=== PATIENT | male | born 1965 | race Caucasian/White ===

== ENCOUNTER 2023-01-28 10:20 | Outpatient (CLI) | payer OTHER, MEDICARE, SELFPAY ==
--- NOTE | 2023-01-28 | ECG_ITS ---
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 Interpretive Statements NAME OF STUDY: TREADMILL STRESS TEST INDICATION: htn, PROCEDURE: At the baseline, the patient's blood pressure was 160/77 with a heart rate of 81. The baseline electrocardiogram showed normal sinus rhythm with normal ST-Ts.. The patient exercised for 8 minutes on a standard Savage protocol. Patient attained a maximum heart rate of 159 beats per minute(97% of the maximum predicted heart rate) with a blood pressure at the peak exercise of 217/78 mm Hg. The EKG at the peak exercise revealed. Patient did not have any chest pain or any significant cardiac arrhythmias with the exercise During the recovery phase, there were no new changes. Blood pressure at the end of the recovery phase was 175/69 mm Hg with a heart rate of 88 per minute. CONCLUSION: 1. No significant EKG changes with treadmill exercise 2. No exercise-induced chest pain or cardiac arrhythmia 3. Fair exercise tolerance, attained a maximum of 10.2 METs 4. Hypertensive response to exercise Electronically Signed On 01-28-2023 15:42:25 CDT by Isabelle Lassiter M.D. [id number]
[2023-01-28 10:31] VITALS: BMI 32.5
[2023-01-28 11:12] VITALS: BP 175/69; PULSE 88
== END 2023-01-28 10:21 | disposition home or self-care (01) ==
LOC: CDL 10:26
PROVIDERS: Visit Provider Family Medicine
DX: R07.9 Chest pain, unspecified (principal); I10 Essential (primary) hypertension
CPT/HCPCS: 93017

== ENCOUNTER 2023-01-28 11:24 | Outpatient (CLI) | payer OTHER, MEDICARE, SELFPAY ==
[2023-01-28 12:25] LABS: Albumin Level 4.3 g/dL (3.5-5.2); Alkaline Phosphatase 121 U/L (40-130); Anion Gap 16.6 (5-19); Aspartate Amino Transferase 16 U/L (0-40); Blood Urea Nitrogen 15 mg/dL (6-20); Calcium 9.2 mg/dL (8.5-10.5); Carbon Dioxide 23 mmol/L (22-29); Chloride 104 mmol/L (98-107); Chol HDL Ratio 4.22 mg/dL (1.0-5.00); Cholesterol 152 mg/dL (0-200); Globulin 2.7 g/dL (1.3-4.6); Glomerular Filtration Rate 99.6 mL/min (90-130); Glucose 155 mg/dL (65-115); HDL Cholesterol 36 mg/dL (60-100); LDL Cholesterol Calculated 94 mg/dL (50-129); LDL HDL Ratio 2.61 RATIO (0.00-3.22); Osmolality Calculated 292 mOsm/kg (285-295); Potassium 4.6 mmol/L (3.5-5.1); Sodium 139 mmol/L (136-145); Total Bilirubin 0.6 mg/dL (0.15-1.2); Triglycerides 110 mg/dL (0-150)
[2023-01-28 12:37] LABS: Creatinine Urine, Random 140 mg/dL (39-259); Microalbumin Random Urine 12 ug/dL (0-20)
[2023-01-28 12:38] LABS: Alanine Aminotransferase 24 U/L (0-41); Estmated Average Glucose 163; Hemoglobin A1C 7.3 % (4.0-6.0)
[2023-01-28 12:39] LABS: Microalbum Creatinine Ratio Ur 86 mg/dL (0-20)
== END 2023-01-28 11:25 | disposition home or self-care (01) ==
PROVIDERS: PCP Family Medicine; Visit Provider Family Medicine
DX: E11.9 Type 2 diabetes mellitus without complications (principal)
CPT/HCPCS: 36415; 80053; 80061; 82044; 83036

== ENCOUNTER 2023-03-25 12:12 | Emergency (ER) | payer OTHER, MEDICARE, SELFPAY ==
[2023-03-25 12:13] VITALS: BP 170/94; PULSE 72; RESP 17; TEMP 36.8; O2SAT 96; BMI 32.5
--- NOTE | 2023-03-25 12:36 | XR_ITS ---
WS: [id number] Portable AP upright chest, 03/25/2023 Clinical Data: htn, headache Comparison: None. Findings: No nodules, masses or effusions are seen. The heart is normal. The pulmonary vascularity is not increased. No pneumonia or pneumothorax is seen. XR/XR chest 1V portable [id number] Impression: Negative chest.
[2023-03-25 12:55] LABS: Basophils % 0.5 %; Eosinophils # 0.1 10^3/uL (0.0-0.8); Eosinophils % 1.8 %; Hematocrit 40.1 % (42.0-52.0); Hemoglobin 13.5 g/dL (11.7-16.6); Lymphocytes # 1.9 10^3/uL (0.8-4.8); Lymphocytes % 23.2 %; Mean Corpuscular HGB Conc 33.7 g/dL (30.0-36.0); Mean Corpuscular Hemoglobin 29.8 pg (28.0-34.0); Mean Corpuscular Volume 88.5 fl (80-94); Mean Platelet Volume 9.3 fL (7.4-10.4); Monocytes # 0.6 10^3/uL (0.2-0.9); Neutrophils # 5.32 10^3/uL (1.8-7.7); Neutrophils % 66.6 %; Nucleated Red Blood Cells % 0 %; Platelet Count 255 10^3/cmm (130-400); Red Blood Count 4.53 10^6/uL (4.1-5.3); Red Cell Distribution Width 12.3 % (12.1-15.1)
--- NOTE | 2023-03-25 13:15 | CT_ITS ---
WS: [id number] CT HEAD TECHNIQUE: Noncontrast CT of the head obtained from the skullbase to the vertex. CLINICAL INFORMATION: htn, dizziness, headache COMPARISON: None. DLP: 1146.[address] scans at [facility] use at least one of these dose optimization techniques: automated e xposure control; mA and/or kV adjustment per patient size (includes targeted exams where dose is matc hed to clinical indication); or iterative reconstruction. FINDINGS: No evidence of intracranial hemorrhage or mass effect. Ventricular system and basal cisterns are brown nt. 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 Mild small vessel changes with mild parenchymal volume loss. No extra-axial fluid collections. No derek dence of mass or mass effect. Paranasal sinuses and mastoid air cells are well aerated. .Normal visualized soft tissues. CT/CT head wo con* [id number] IMPRESSION: 1. No evidence of intracranial hemorrhage or mass effect. 2. 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 3. No acute intracranial findings.
--- NOTE | 2023-03-25 13:15 | W.ED.DIZZY ---
HPI - Dizziness General: Chief Complaint: Dizziness Stated Complaint: High BP, dizzy, head pain Time Seen by Provider: 03/25/23 13:04 History of Present Illness: HPI Narrative: 57-year-old male patient comes in today with elevated blood pressure this morning along with headache and dizziness. On exam patient appears nontoxic. Patient states that he is starting to feel better with his headache resolving and not as dizzy. Patient reports that he has recently been placed on some carvedilol 3.125 mg twice a day. Patient previously was on losartan 100 mg daily. Patient states that he has started smoking again which he believes is contributing to his poor control of blood pressure. Patient appears nontoxic. Patient reports no chest pain. Patient does have a headache with some mild dizziness. Patient denies any other chronic medical problems. Patient reports recent stress test approximately 1 month ago that was normal. Associated symptoms: Reports headache(s); Denies chest pain, nausea or vomiting Associated neuro symptoms: Deny numbness in extremities Review of Systems Const: Denies: fever(s) Card: Denies: chest pain Resp: Denies: dyspnea GI: Denies: nausea or vomiting : Denies: difficulty urinating Skin/Breast: Denies: rash Neuro: Reports: headache(s) and dizziness; Denies: numbness in extremities Psych: Denies: anxiety Physical Exam Const: COMMON NORMALS: alert HENMT: COMMON NORMALS: normocephalic HEAD & SCALP: normocephalic THROAT: posterior oropharynx normal Neck/C-Spine: COMMON NORMALS: full ROM Chest: COMMONS NORMALS: normal inspection of the chest Resp: COMMON NORMALS: normal respiratory effort Cardio: COMMON NORMALS: regular rate, regular rhythm, S1 normal heart sound present and S2 normal heart sound present RATE: regular rate RHYTHM: regular rhythm HEART SOUNDS: S1 normal heart sound present and S2 normal heart sound present GI: COMMON NORMALS: Soft to palpation and non-tender PALPATION: Yes Soft to palpation Extremity: COMMON NORMALS: no pedal edema Neuro: SUSAN COMA SCALE: document GCS findings Susan coma scale eye opening: Spontaneous Susan coma scale verbal response: Orientated Susan coma scale motor response: Obey commands Susan coma scale total score: 15 SENSORIUM/ORIENTATION: Yes alert GAIT: Yes Normal gait present Skin: COMMON NORMALS: turgor normal GENERAL SKIN EXAM: turgor normal Course Vital Signs: Vital signs: Vital Signs Temperature 98.2 F 03/25/23 12:13 Pulse Rate 65 03/25/23 13:39 Respiratory Rate 16 03/25/23 13:39 Blood Pressure 143/88 03/25/23 13:39 Pulse Oximetry 97 03/25/23 13:39 Oxygen Delivery Me thod Room Air 03/25/23 13:39 MDM - Dizziness Medical Decision Making 57-year-old male patient comes in today with complaints of dizziness and headache. On exam patient moves all extremities well. Patient appears nontoxic. No weakness is noted in the extremities. No focal neural deficits are noted. Vital signs are normal except for some elevation of blood pressure at 170/94. Differential diagnosis includes but not limited to hypertensive urgency, intracranial bleeding, stroke syndrome, anxiety. Laboratory values were unremarkable. EKG was sinus rhythm with no significant abnormalities. Cardiac enzymes was normal. Patient's blood pressure came down to 140 systolic and he had resolution of symptoms. Believe the patient probably had some overlapping time from when he took his blood pressure medication and his symptoms. Recommend increasing carvedilol to 6.25 mg twice a day for better blood pressure control. Patient was recommended to follow-up with primary care for further instruction and evaluation. Patient agreed to plan and was discharged home. Patient was stable and free of discomfort on discharge. Lab Data 03/25/23 12:48 03/25/23 12:48 Radiology Impressions Chest X-Ray 03/25/23 12:36 Impression: Negative chest. Head CT 03/25/23 13:15 IMPRESSION: 1. No evidence of intracranial hemorrhage or mass effect. 2. 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 3. No acute intracranial findings. Laboratory Results WBC 8.0 10^3/uL (4.0-10.0) 03/25/23 12:48 RBC 4.53 10^6/uL (4.1-5.3) 03/25/23 12:48 Hgb 13.5 g/dL (11.7-16.6) 03/25/23 12:48 Hct 40.1 % (42.0-52.0) L 03/25/23 12:48 MCV 88.5 fl (80-94) 03/25/23 12:48 MCH 29.8 pg (28.0-34.0) 03/25/23 12:48 MCHC 33.7 g/dL (30.0-36.0) 03/25/23 12:48 RDW 12.3 % (12.1-15.1) 03/25/23 12:48 Plt Count 255 10^3/cmm (130-400) 03/25/23 12:48 MPV 9.3 fL (7.4-10.4) 03/25/23 12:48 Neut % (Auto) 66.6 % 03/25/23 12:48 Lymph % (Auto) 23.2 % 03/25/23 12:48 [place] % (Auto) 7.0 % 03/25/23 12:48 Eos % (Auto) 1.8 % 03/25/23 12:48 Baso % (Auto) 0.5 % 03/25/23 12:48 Neut # (Auto) 5.32 10^3/uL (1.8-7.7) 03/25/23 12:48 Lymph # (Auto) 1.9 10^3/uL (0.8-4.8) 03/25/23 12:48 [place] # (Auto) 0.6 10^3/uL (0.2-0.9) 03/25/23 12:48 Eos # (Auto) 0.1 10^3/uL (0.0-0.8) 03/25/23 12:48 Baso # (Auto) 0.0 10^3/uL (0.0-0.1) 03/25/23 12:48 Nucleated RBC % (auto) 0 % 03/25/23 12:48 Nucleated RBCs # 0.0 /100WBC 03/25/23 12:48 Sodium 140 mmol/L (136-145) 03/25/23 12:48 Potassium 4.7 mmol/L (3.5-5.1) 03/25/23 12:48 Chloride 105 mmol/L (98-107) 03/25/23 12:48 Carbon Dioxide 23 mmol/L (22-29) 03/25/23 12:48 Anion Gap 16.7 (5-19) 03/25/23 12:48 BUN 15 mg/dL (6-20) 03/25/23 12:48 Creatinine 0.8 mg/dL (0.7-1.2) 03/25/23 12:48 GFR Calculation 99.6 mL/min (90-130) 03/25/23 12:48 Glucose 107 mg/dL (65-115) 03/25/23 12:48 Calculated Osmolality 291 mOsm/kg (285-295) 03/25/23 12:48 Calcium 8.7 mg/dL (8.5-10.5) 03/25/23 12:48 Total Bilirubin 0.3 mg/dL (0.15-1.2) 03/25/23 12:48 AST 20 U/L (0-40) 03/25/23 12:48 ALT 33 U/L (0-41) 03/25/23 12:48 Alkaline Phosphatase 111 U/L (40-130) 03/25/23 12:48 Troponin T Baseline 13 ng/L (0-15) 03/25/23 12:48 NT-Pro-B Natriuret Pep 145 pg/mL (0-125) H 03/25/23 12:48 Total Protein 6.8 g/dL (6.6-8.7) 03/25/23 12:48 Albumin 4.2 g/dL (3.5-5.2) 03/25/23 12:48 Globulin 2.6 g/dL (1.3-4.6) 03/25/23 12:48 Urine Color Yellow (Yellow) 03/25/23 13:33 Urine Appearance Clear (CLEAR) 03/25/23 13:33 Urine pH 5 (5-7) 03/25/23 13:33 Ur Specific [place] 1.015 (1.005-1.030) 03/25/23 13:33 Urine Protein Neg (Negative) 03/25/23 13:33 Urine Glucose (UA) Norm (Normal) 03/25/23 13:33 Urine Ketones Negative (Negative) 03/25/23 13:33 Urine Blood Neg (Negative) 03/25/23 13:33 Urine Nitrate Negative (Negative) 03/25/23 13:33 Urine Bilirubin Neg (Negative) 03/25/23 13:33 Urine Urobilinogen Norm mg/dL (Negative) 03/25/23 13:33 Ur Leukocyte Esterase Negative (Negative) 03/25/23 13:33 Discharge Plan Discharge Patient Disposition: Home Clinical Impression: Hypertensive urgency Condition: Stable Prescriptions: New carvedilol 6.25 mg tablet 6.25 mg PO BID Qty: 60 0RF Rx Instructions: must administer with a meal/food Discharge Orders: Discharge ED (Routine); Ordered 03/25/23 Ordered By: Kieran Reddy Referrals: Dl Robertson MD [Primary Care Provider] - Discharge Diet: Usual diet Discharge Activity: Increase activity as tolerated Patient Instructions: Hypertension (ED) Activity Restrictions/Additional Instructions: Home rest. Increase carvedilol to 6.25 mg twice a day. Avoid alcohol and tobacco. Follow-up with primary care in 1 week for recheck. Return to ED for new concerns or worsening symptoms. Coding Level of Care Code ED Tool Honing Machine Set Up Operator for Alisa French
[2023-03-25 13:17] LABS: Troponin(5th) Baseline 13 ng/L (0-15)
[2023-03-25 13:26] LABS: Alanine Aminotransferase 33 U/L (0-41); Albumin Level 4.2 g/dL (3.5-5.2); Alkaline Phosphatase 111 U/L (40-130); Anion Gap 16.7 (5-19); Aspartate Amino Transferase 20 U/L (0-40); Blood Urea Nitrogen 15 mg/dL (6-20); Calcium 8.7 mg/dL (8.5-10.5); Carbon Dioxide 23 mmol/L (22-29); Chloride 105 mmol/L (98-107); Globulin 2.6 g/dL (1.3-4.6); Glomerular Filtration Rate 99.6 mL/min (90-130); Glucose 107 mg/dL (65-115); NT Pro B Type Natriuretic Pept 145 pg/mL (0-125); Osmolality Calculated 291 mOsm/kg (285-295); Potassium 4.7 mmol/L (3.5-5.1); Sodium 140 mmol/L (136-145); Total Bilirubin 0.3 mg/dL (0.15-1.2); Total Protein 6.8 g/dL (6.6-8.7)
--- NOTE | 2023-03-25 13:36 | ECG_ITS ---
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 Measurements Intervals [place] Rate: 65 P: 62 [place]: 169 QRS: 83 QRSD: 107 T: -2 QT: 369 QTc: 385 Interpretive Statements SINUS RHYTHM ABNORMAL QRS-T ANGLE [QRS-T AXIS DIFFERENCE > 60] No previous ECG available for comparison Electronically Signed On 03-25-2023 13:39:58 CDT by Rush Santoro M.D. [id number]
[2023-03-25 13:39] VITALS: BP 143/88; PULSE 65; RESP 16; O2SAT 97
[2023-03-25 13:46] LABS: Add Urine Microscopic? NO; Charge for UA Resulting for Rev
[2023-03-25 13:53] LABS: Urine Appearance Clear (CLEAR); Urine Color Yellow (Yellow)
[2023-03-25 13:54] LABS: Bilirubin Urine Neg (Negative); Blood Urine Neg (Negative); Glucose Urine UA Norm (Normal); Ketones Urine Negative (Negative); Leukocyte Esterase Urine Negative (Negative); Nitrate Urine Negative (Negative); Protein Urine Neg (Negative); Specific Gravity, Urine 1.015 (1.005-1.030); Urobilinogen Urine Norm (Negative); pH Urine 5 (5-7)
== END 2023-03-25 14:45 | disposition home or self-care (01) ==
PROVIDERS: Emergency Provider Nurse Practitioner Family; PCP Family Medicine
DX: I16.0 Hypertensive urgency (principal)
CPT/HCPCS: 36415; 70450; 71045; 80053; 81003; 83880; 84484; 85025; 93005; 99285

== ENCOUNTER → 2023-08-26 10:47 | Outpatient (BNVA) | payer OTHER, SELFPAY | PROVIDERS: PCP Family Medicine; Referring Provider Dermatology; Visit Provider Physician Assistant | DX: M70.72 Other bursitis of hip, left hip | CPT/HCPCS: 73522 ==

== ENCOUNTER → 2023-11-03 08:56 | Outpatient (BNVA) | payer OTHER, SELFPAY | PROVIDERS: PCP Family Medicine; Visit Provider Podiatrist Foot & Ankle Surgery | DX: M79.671 Pain in right foot (principal); M76.61 Achilles tendinitis, right leg | CPT/HCPCS: 73630 ==

== ENCOUNTER 2023-11-16 06:00 | Outpatient (RCR) | payer BC, SELFPAY | END 2023-12-14 23:59 | disposition home or self-care (01) | LOC: APT 06:00 | PROVIDERS: Visit Provider Podiatrist Foot & Ankle Surgery | DX: M76.61 Achilles tendinitis, right leg (principal) | CPT/HCPCS: 97110; 97161; 97530 ==

== ENCOUNTER 2023-11-24 13:40 | Emergency (ER) | payer BC, MEDICARE, SELFPAY ==
[2023-11-24 14:01] VITALS: BP 164/89; PULSE 96; RESP 16; TEMP 37.5; O2SAT 100; BMI 32.5
--- NOTE | 2023-11-24 14:35 | ED_ITS ---
HPI - URI/Sore Throat General: Chief Complaint: Upper Respiratory Infection Stated Complaint: weakness, headache, fever Time Seen by Provider: 11/24/23 14:15 History of Present Illness: 58-year-old male patient comes in today with fever, chills, headache, malaise starting this morning. Patient reports last night he started getting a sore throat and took some medicine for his symptoms but when he awakened this morning he was worse. Patient has a history of of diabetes mellitus type 2, and high blood pressure. Patient denies any other chronic medical problems. 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 Associated symptoms: Reports fever(s), headache(s) and nausea; Deny chest pain Review of Systems General: Reports: 10 or more systems reviewed and unremarkable except in HPI and below Const: Reports: fever(s), body aches and fatigue ENMT: Reports: throat pain Card: Denies: chest pain Resp: Reports: non-productive cough; Denies: dyspnea GI: Reports: nausea Musc: Denies: neck pain Skin/Breast: Denies: rash Neuro: Reports: headache(s) PFSH ED PFSH: Social History Smoking and tobacco/nicotine status: current every day tobacco/nicotine user pipe Alcohol intake: former Substance/Drug Use: never Physical Exam Const: COMMON NORMALS: alert HENMT: COMMON NORMALS: normocephalic HEAD & SCALP: normocephalic THROAT: posterior oropharynx normal Neck/C-Spine: COMMON NORMALS: full ROM Chest: COMMONS NORMALS: normal inspection of the chest Resp: COMMON NORMALS: normal respiratory effort and clear to auscultation bilaterally AUSCULTATION: clear to auscultation bilaterally Cardio: COMMON NORMALS: regular rate and regular rhythm RATE: regular rate RHYTHM: regular rhythm GI: COMMON NORMALS: Soft to palpation and non-tender PALPATION: Yes Soft to palpation : COMMON NORMALS: Yes no CVA tenderness BLADDER/KIDNEY EXAM: Yes no CVA tenderness Back/Pelvis: COMMON NORMALS: no CVA tenderness Extremity: COMMON NORMALS: no pedal edema Neuro: SENSORIUM/ORIENTATION: Yes alert Skin: COMMON NORMALS: turgor normal GENERAL SKIN EXAM: turgor normal Course Vital Signs: Vital signs: Vital Signs Temperature 99.5 F 11/24/23 14:01 Pulse Rate 96 11/24/23 14:01 Respiratory Rate 16 11/24/23 14:01 Blood Pressure 164/89 11/24/23 14:01 Pulse Oximetry 100 11/24/23 14:01 Oxygen Delivery Me thod Room Air 11/24/23 14:01 MDM - URI/Sore Throat Medical Decision Making 58-year-old male patient comes in today for complaints of illness starting last night. Patient reports sore throat, cough, body aches, and chills worse this morning. Patient does work in the public. On exam patient lungs are clear to auscultation, patient has some postnasal drip, abdomen soft nontender, no edema is noted in the extremities, vital signs are normal except for some mild elevation in blood pressure. Differential diagnosis includes but not limited to COVID-19, influenza, upper respiratory infection, viral syndrome. COVID and influenza test were negative. Chest x-ray was normal. I believe patient probably is too early in the illness to have a positive antigen test at this time. I reviewed viral syndrome such as influenza or COVID treatment plans and need for follow-up or return to the ER. Patient reported understanding and agreed to plan. Lab Data Radiology Impressions Chest X-Ray 11/24/23 15:05 IMPRESSION: No acute findings. Laboratory Results Influenza Type A Ag negative (Negative) 11/24/23 14:32 Influenza Type B Ag negative (Negative) 11/24/23 14:32 SARS-CoV-2 Ag (Rapid) negative (Negative) 11/24/23 14:32 All radiology interpretation(s) finalized by discharge Discharge Plan Discharge Patient Disposition: Home Clinical Impression: Flu-like symptoms, Upper respiratory infection, Headache Condition: Stable Prescriptions: No Action losartan 100 mg tablet 100 mg PO DAILY metformin 1,000 mg tablet 1,000 mg PO BID ibuprofen [Advil] 200 mg tablet 200 mg PO Q6H PRN (Reason: Pain) carvedilol 12.5 mg tablet 12.5 mg PO BID glipizide 5 mg tablet extended release 24hr 5 mg PO BID Discharge Orders: Discharge ED (Routine); Ordered 11/24/23 Ordered By: Kieran Reddy Discharge Diet: Usual diet Discharge Activity: Increase activity as tolerated Patient Instructions: Influenza (ED) Activity Restrictions/Additional Instructions: Home and rest. Drink plenty of water and fluids. Use acetaminophen and/or ibuprofen for fevers and pain. You may use huam-bbm-tyauway cough and cold medicines as needed for symptoms. Follow-up with primary care. Return to ED for worsening symptoms such as inability to hold fluids down, severe chest pain, severe shortness of breath. Coding Level of Care Code ED Private Equity Analyst for Alisa French
[2023-11-24] MEDS: sodium chloride 0.9% 500 ML 999 ML IV (15:02)
[2023-11-24] MEDS: ketorolac 30 mg/mL INJ 15 MG IVP (15:02)
[2023-11-24] MEDS: metoclopramide 5 mg/mL SDV 2 mL 10 MG IVP (15:02)
[2023-11-24] MEDS: dexamethasone 10 mg/mL INJ IVP (15:02)
[2023-11-24 15:04] LABS: Influenza A by IFA negative (Negative); Influenza B by IFA negative (Negative)
--- NOTE | 2023-11-24 15:05 | XRR_ITS ---
PROCEDURE INFORMATION: Exam: XR Chest Exam date and time: 11/24/2023 3:08 PM Age: 58 years old Clinical indication: Cough and fever; Additional info: Cough, fever TECHNIQUE: Imaging protocol: Radiologic exam of the chest. Views: 1 view. COMPARISON: CR XR chest 1V portable [id number] 03/25/2023 12:48 PM FINDINGS: Lungs: Unremarkable. No consolidation. Pleural spaces: Unremarkable. No pleural effusion. No pneumothorax. Heart/Mediastinum: Unremarkable. No cardiomegaly. Bones/joints: Unremarkable. XR/XR chest 1V portable [id number] IMPRESSION: No acute findings.
[2023-11-24 15:10] LABS: SARS Covid-2 Antigen negative (Negative)
--- NOTE | 2023-11-24 15:17 | PC.PHAR ---
PT STATES CURRENT DOSAGE ON THE FOLLOWING: CARVEDILOL IS 12.5 MG TWICE DAILY, GLIPIZIDE ER 5 MG TWICE DAILY, METFORMIN 1000 MG TWICE DAILY. 11/24/26
[2023-11-24 15:37] VITALS: PULSE 80; RESP 18; O2SAT 99
[2023-11-25 08:07] LABS: Glucose Point of Care 219 mg/dL (70-110)
== END 2023-11-24 15:38 | disposition home or self-care (01) ==
PROVIDERS: Emergency Provider Nurse Practitioner Family
DX: R51.9 Headache, unspecified (principal); J06.9 Acute upper respiratory infection, unspecified; Z11.52 Encounter for screening for COVID-19; Z79.84 Long term (current) use of oral hypoglycemic drugs; Z72.0 Tobacco use
CPT/HCPCS: 36416; 71045; 82962; 87426; 87804; 96374; 96375; 99284; J1100; J1885; J2765; J7040

== ENCOUNTER 2023-12-15 06:00 | Outpatient (RCR) | payer BC, SELFPAY | END 2024-01-12 23:59 | disposition home or self-care (01) | LOC: APT 06:00 | PROVIDERS: PCP Family Medicine; Visit Provider Podiatrist Foot & Ankle Surgery | DX: M76.61 Achilles tendinitis, right leg (principal) | CPT/HCPCS: 97110; 97530 ==

== ENCOUNTER → 2024-01-10 11:17 | Outpatient (BNVA) | payer MEDICARE, SELFPAY | PROVIDERS: PCP Family Medicine; Visit Provider Nurse Practitioner Family | DX: L57.8 Other skin changes due to chronic exposure to nonionizing radiation (principal); D22.62 Melanocytic nevi of left upper limb, including shoulder; L81.4 Other melanin hyperpigmentation; L57.0 Actinic keratosis; L82.1 Other seborrheic keratosis; Z85.828 Personal history of other malignant neoplasm of skin | CPT/HCPCS: 17000; 99213 ==

== ENCOUNTER 2024-01-13 06:00 | Outpatient (RCR) | payer BC, SELFPAY | END 2024-02-12 23:59 | disposition home or self-care (01) | LOC: APT 06:00 | PROVIDERS: PCP Family Medicine; Visit Provider Podiatrist Foot & Ankle Surgery | DX: M76.61 Achilles tendinitis, right leg (principal) | CPT/HCPCS: 97110; 97530 ==

== ENCOUNTER 2024-02-13 06:00 | Outpatient (RCR) | payer BC, MEDICARE, SELFPAY | END 2024-03-13 23:59 | disposition home or self-care (01) | LOC: APT 06:00 | PROVIDERS: PCP Family Medicine; Visit Provider Podiatrist Foot & Ankle Surgery | DX: M76.61 Achilles tendinitis, right leg (principal) | CPT/HCPCS: 97110; 97530 ==

== ENCOUNTER → 2024-04-18 13:37 | Outpatient (BNVA) | payer BC, MEDICARE, SELFPAY | PROVIDERS: PCP Nurse Practitioner Family; Visit Provider Family Medicine | DX: Z12.5 Encounter for screening for malignant neoplasm of prostate (principal); I10 Essential (primary) hypertension; E11.9 Type 2 diabetes mellitus without complications | CPT/HCPCS: 80053; 80061; 83036; 84443; 85025; G0103 ==

== ENCOUNTER 2024-06-27 12:34 | Outpatient (CLI) | payer BC, SELFPAY ==
--- NOTE | 2024-06-27 12:39 | XR_ITS ---
WS: [id number] Examination: XR calcaneus LT min 2V [id number] Reason for Exam: M79.672 - Pain in left foot Date: June 27, 2024 Comparison: None. Findings: The bone density is maintained. There is no destruction There is no fracture Spurring is identified at the attachment of the Achilles as well as the plantar aponeurosis. XR/XR calcaneus LT min 2V [id number] Impression: Calcaneal spurring is identified without acute bony abnormality.
== END 2024-06-27 12:35 | disposition home or self-care (01) ==
LOC: RAD 12:36
PROVIDERS: PCP Nurse Practitioner Family; Visit Provider Family Medicine
DX: M79.672 Pain in left foot (principal); M77.32 Calcaneal spur, left foot
CPT/HCPCS: 73650

== ENCOUNTER 2024-07-11 06:00 | Outpatient (RCR) | payer BC, SELFPAY | END 2024-07-14 18:00 | disposition home or self-care (01) | LOC: APT 06:00 | PROVIDERS: Visit Provider Podiatrist Foot & Ankle Surgery | DX: M72.2 Plantar fascial fibromatosis (principal) | CPT/HCPCS: 97161 ==

== ENCOUNTER 2024-07-15 06:00 | Outpatient (RCR) | payer BC, SELFPAY | END 2024-08-13 23:59 | disposition home or self-care (01) | LOC: APT 06:00 | PROVIDERS: Visit Provider Podiatrist Foot & Ankle Surgery | DX: M72.2 Plantar fascial fibromatosis (principal) | CPT/HCPCS: 97110; 97112; 97140; 97530 ==

== ENCOUNTER 2024-07-30 16:49 | Outpatient (CLI) | payer BC, SELFPAY ==
--- NOTE | 2024-07-30 16:30 | US_ITS ---
WS: [id number] ULTRASOUND SOFT TISSUES RIGHT groin HISTORY: R10.31 - Right lower quadrant pain COMPARISON: None available. TECHNIQUE: 2-D and color Doppler imaging is submitted. Ultrasound is directed along the RIGHT inguinal canal at the area of pain. There is a heterogeneous m ass which is ill-defined. Prior to this a tubular structure indicating it may be a vascular structure but there is no increased vascularity. A portion of the abnormality in the RIGHT groin measures 14 x 8 mm and could be a small reactive lymph node. US/US soft tissue/extremity [id number] IMPRESSION: 1. Heterogeneous tubular structure in the RIGHT inguinal canal. There is no in creased vascularity. This could be a thrombosed varicocele. Abnormal lymph node also within the differential. For further evaluation consider CT evaluation of the abdomen and pelvis with IV and oral contrast.
== END 2024-07-30 16:50 | disposition home or self-care (01) ==
LOC: RAD 16:49
PROVIDERS: Visit Provider Family Medicine
DX: R93.89 Abnormal findings on diagnostic imaging of other specified body structures (principal); R10.31 Right lower quadrant pain
CPT/HCPCS: 76882

== ENCOUNTER 2024-08-07 10:53 | Outpatient (CLI) | payer BC, SELFPAY ==
--- NOTE | 2024-08-07 11:00 | CTR_ITS ---
PROCEDURE INFORMATION: Exam: CT Abdomen And Pelvis Without And With Contrast Exam date and time: 08/07/2024 12:14 PM Age: 58 years old Clinical indication: Abnormal findings; Abnormal radiologic finding of the abdomen; Radiologic exam and body structure: Inguinal hernia; Patient HX: Inguinal mass seen on US. PT C/O rlq pain/pulling x 6 months worsening. ; Additional info: Inguinal mass, inguinal mass seen on ultrasound as possible varicele or TECHNIQUE: Imaging protocol: Computed tomography of the abdomen and pelvis without and with contrast. Radiation optimization: All CT scans at this facility use at least one of these dose optimization techniques: automated exposure control; mA and/or kV adjustment per patient size (includes targeted exams where dose is matched to clinical indication); or iterative reconstruction. Contrast material: OMNI 350; Contrast volume: 100 ml; Contrast route: INTRAVENOUS (IV); COMPARISON: 1. CR XR hip BI 3-4V wo/w pel [id number] 08/26/2023 11:07 AM 2. US soft tissue/extremity [id number] 07/30/2024 4:53 PM RADIATION DOSE METRICS: Total DLP (mGy-cm): 2177.79 FINDINGS: Lungs: Lung bases are clear. Liver: Liver is enlarged measuring 21 cm. Diffuse decrease in hepatic parenchymal density, consistent with fatty infiltration. Scattered subcentimeter hypodense liver lesions which are too small to characterize. Consider follow-up with ultrasound. Gallbladder and biliary ducts: Gallbladder is normal. There is no evidence of biliary ductal dilation. Pancreas: The pancreas is normal. Spleen: The spleen is normal. Adrenal glands: Adrenal glands are normal. Kidneys and ureters: Multiple simple left renal cysts, as large as 2.7 x 2.5 cm, for which no follow-up is recommended. The right kidney is normal. There is no evidence of hydronephrosis. No hydroureter. There is no perinephric stranding or fluid. Stomach and bowel: No bowel thickening. There is no evidence of intestinal obstruction. The stomach is normal. The duodenum is unremarkable. Appendix: A normal appendix is identified. Intraperitoneal space: There is no evidence of free intraperitoneal or pelvic fluid. No intraperitoneal fluid collections. There is no free intraperitoneal air. Vasculature: Portal venous system is patent. Mild atherosclerotic calcification of the arterial vasculature. No aortic aneurysms. Lymph nodes: There is no evidence of lymphadenopathy. Urinary bladder: The bladder is normal. Reproductive: The prostate demonstrates mild nonspecific enlargement. The seminal vesicles are normal. Bones/joints: Bone demineralization. 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 Moderate multilevel degenerative changes of the spine. No acutely displaced fractures. Soft tissues: No acute soft tissue findings. There is a fat-containing umbilical hernia. CT/CT abdomen pelvis wo/w [id number] IMPRESSION: 1. No acute abdominopelvic pathology. 2. No CT correlate for the prior ultrasound findings. Specifically, no inguinal adenopathy or right inguinal lesions. 3. Incidental findings as above. COMMENTS: Consider follow-up ultrasound.
[2024-08-07] MEDS: iohexol 350 mg/mL 500 mL Btl (per mL) PO (12:22)
[2024-08-07] MEDS: iohexol 350 mg/mL 500 mL Btl (per mL) IV (12:22)
== END 2024-08-07 10:54 | disposition home or self-care (01) ==
LOC: RAD 10:53
PROVIDERS: PCP Family Medicine; Visit Provider Family Medicine
DX: R19.09 Other intra-abdominal and pelvic swelling, mass and lump (principal); K76.0 Fatty (change of) liver, not elsewhere classified; R16.0 Hepatomegaly, not elsewhere classified; Q61.02 Congenital multiple renal cysts; M16.0 Bilateral primary osteoarthritis of hip; M51.34 Other intervertebral disc degeneration, thoracic region
CPT/HCPCS: 74178